=== PATIENT | female | born 1965 | race Caucasian/White ===

== ENCOUNTER 2018-06-19 06:22 | Day surgery (SDC) | payer OTHER ==
[~2018-06-19] VITALS: Ht 157.5 cm; Wt 64.8 kg
[2018-06-19 07:06] VITALS: Ht 157.5 cm; Wt 64.8 kg
[2018-06-19] MEDS ORDERED: AMLO-147 PO (07:40)
[2018-06-19 07:41] VITALS: BP 161/87; PULSE 76; RESP 18
[2018-06-19] MEDS ORDERED: FENTAnyl 50 MCG/ML VIAL ONE (08:34)
[2018-06-19] MEDS ORDERED: MIDAZOLAM 1 MG/ML 2 ML INJ ONE ×3 (08:34)
[2018-06-19 09:01] VITALS: BP 108/69; PULSE 58; RESP 16
== END 2018-06-19 15:53 | disposition home or self-care (01) ==
LOC: GIL 06:22
PROVIDERS: ATTEND Internal Medicine Gastroenterology
DX: Z12.11 Encounter for screening for malignant neoplasm of colon (principal); K64.8 Other hemorrhoids
CPT/HCPCS: 45378; J2250; J3010; Z7610